=== PATIENT | male | born 1975 | race Caucasian/White ===

== ENCOUNTER 2025-01-30 05:15 | Inpatient (IN) | payer OTHER ==
[~2025-01-30] VITALS: Ht 182.9 cm; Wt 79.5 kg
[2025-01-30 06:55] LABS: CHLORIDE 104 mEq/L (98-107); POTASSIUM 3.9 mEq/L (3.5-5.1); SODIUM 141 mEq/L (136-145)
[2025-01-30 06:56] LABS: CALCIUM 8.9 mg/dL (8.7-10.4); CARBON DIOXIDE 24 mEq/L (21-32)
[2025-01-30 07:01] LABS: CREATININE 0.8 mg/dL (0.6-1.3); GLUCOSE 106 mg/dL (70-105); UREA NITROGEN BLOOD 14 mg/dL (9-23)
[2025-01-30 07:04] LABS: TROPONIN I HIGH SENSITIVITY 6 ng/L (3.0-53)
[2025-01-30 07:16] LABS: HEMATOCRIT. 41.9 % (42.0-52.0); HEMOGLOBIN. 13.9 g/dL (14.0-18.0); MEAN CORPUSCULAR HEMOGLOBIN 30.7 pg (28.0-32.0); MEAN CORPUSCULAR HGB CONC 33.1 g/dL (31.0-37.0); MEAN CORPUSCULAR VOLUME 92.6 fL (80.0-94.0); MEAN PLATELET VOLUME 7.8 fl (7.4-10.4); PLATELET 360 x1000/uL (130-400); RED BLOOD CELL COUNT 4.52 mill/uL (4.7-6.1); RED CELL DISTRIBUTION WIDTH 13.9 % (11.6-14.6); WHITE BLOOD COUNT 17.6 x1000/uL (4.5-11.0)
[2025-01-30 07:22] LABS: DIFFERENTIAL COMMENT 1
[2025-01-30 07:31] LABS: INR 0.9; PROTHROMBIN TIME 10.1 sec (9.6-11.0)
[2025-01-30 07:42] LABS: PLATELET ESTIMATE NORMAL
[2025-01-30] MEDS: NALOXONE HCL 0.4MG/ML 1ML VIAL IV ONE ×2 (09:38→10:44)
[2025-01-30] MEDS: SODIUM CHLORIDE 0.9% 1,000 ML IV ONE (09:39)
[2025-01-30] MEDS ORDERED: NALOXONE 4 MG in SODIUM CHLORIDE 0.9% 246 ML IV ONE (10:00)
[2025-01-30] MEDS ORDERED: ACETAMINOPHEN 325MG TABLET PO PRN ×2 (10:30)
[2025-01-30] MEDS ORDERED: DOCUSATE SODIUM 100MG CAPSULE PO PRN (10:30)
[2025-01-30] MEDS ORDERED: IPRATROPIUM/ALBUTEROL 0.5-3(2.5)MG/3ML NEB HHN PRN (10:30)
[2025-01-30] MEDS ORDERED: ONDANSETRON HCL 4MG/2ML INJ IV PRN (10:30)
[2025-01-30] MEDS ORDERED: GUAIFENESIN 200MG/10ML SUGAR FREE UDC PO PRN (10:30)
[2025-01-30] MEDS ORDERED: LORAZEPAM 2MG/ML INJ IV PRN (10:30)
[2025-01-30] MEDS ORDERED: CLONIDINE 0.1MG TABLET PO PRN (10:30)
[2025-01-30] MEDS ORDERED: MAGNESIUM/ALUMINUM HYDROXIDE/SIMETHICONE 30ML UDC PO PRN (10:30)
[2025-01-30] MEDS: NALOXONE 4 MG in SODIUM CHLORIDE 0.9% 246 ML IV NR (10:44)
[2025-01-30 11:37] LABS: IRON 72 ug/dL (65-175)
[2025-01-30 11:39] LABS: ALANINE AMINOTRANSFERASE 25 IU/L (10-49); ALBUMIN 4.4 g/dL (3.2-4.8); ASPARTATE AMINOTRANSFERASE 28 IU/L (<34)
[2025-01-30 11:40] LABS: BILIRUBIN DIRECT 0.2 mg/dL (<=3.0); BILIRUBIN TOTAL 0.6 mg/dL (0.1-1.0); PHOSPHORUS 4.5 mg/dL (2.5-4.9); PROTEIN TOTAL 7.3 g/dL (6.0-8.3); TOTAL IRON BINDING CAPACITY 321 ug/dl (250-425)
[2025-01-30 11:54] LABS: ETHANOL BLOOD < 10 mg/dL (<10)
[2025-01-30 11:57] LABS: VITAMIN B12 SERUM 249 pg/mL (211-911)
[2025-01-30] MEDS: THIAMINE HCL 100MG TABLET PO SCH (12:01)
[2025-01-30] MEDS: SODIUM CHLORIDE 0.9% 1,000 ML IV SCH (12:01)
[2025-01-30 12:03] LABS: CORTISOL 57.2 ucg/dL
[2025-01-30 12:20] LABS: BG BASE EXCESS -0.9 mmol/L (-2.0-3.0); BG CARBOXYHEMOGLOBIN 1.3 % (0.5-1.5); BG DEOXYHEMOGLOBIN 2.1 % (0.0-5.0); BG FRACTION INSPIRED OXYGEN 40; BG HCO3 ACT 26.4 mmol/L (21.0-28.0); BG METHEMOGLOBIN 0.3 % (0.5-1.5); BG OXYGEN SATURATION 97.9 % (94.0-98.0); BG OXYHEMOGLOBIN 96.3 % (94.0-98.0); BG PCO2 54.3 mmHg (35.0-48.0); BG PH 7.305 (7.350-7.450); BG PO2 110.7 mmHg (83.0-108.0); BG SAMPLE SITE RIGHT RADIAL; BG TOTAL HEMOGLOBIN 15.1 g/dL (13.5-17.5); BG VENT MODE NASAL CANNULA
[2025-01-30 14:48] LABS: CLARITY URINE CLEAR (CLEAR); COLOR URINE YELLOW (YELLOW); GLUCOSE URINE NEGATIVE (NEGATIVE); KETONES URINE 1+ (NEGATIVE); LEUKOCYTE ESTERASE URINE NEGATIVE (NEGATIVE); NITRITE URINE NEGATIVE (NEGATIVE); OCCULT BLOOD URINE NEGATIVE (NEGATIVE); PH URINE 5.5 (4.5-8.0); PROTEIN URINE TRACE (NEGATIVE); SPECIFIC GRAVITY URINE 1.021 (1.005-1.030); UROBILINOGEN URINE 0.2 E.U./dL (0.2-1.0)
[2025-01-30 15:01] LABS: BACTERIA URINE TRACE; RBC URINE 0-2 /hpf (0-2); SQUAMOUS EPITHELIAL CELL URINE RARE /lpf (RARE/1+); WBC URINE 0-2 /hpf (0-2)
[2025-01-30 15:14] LABS: CREATINE KINASE 239 IU/L (46-171)
[2025-01-30 15:24] LABS: *AMPHETAMINES SCREEN URINE NEGATIVE (NEGATIVE); *BARBITURATES SCREEN URINE NEGATIVE (NEGATIVE); *BENZODIAZEPINES SCREEN URINE NEGATIVE (NEGATIVE); *COCAINE SCREEN URINE PRESUMPTIVE POSITIVE (NEGATIVE); CANNABINOID URINE SCREEN PRESUMPTIVE POSITIVE (NEGATIVE); ECSTASY MDMA SCREEN URINE NEGATIVE (NEGATIVE); METHADONE URINE SCREEN NEGATIVE (NEGATIVE); OPIATES URINE SCREEN NEGATIVE (NEGATIVE); PHENCYCLIDINE URINE SCREEN NEGATIVE (NEGATIVE)
[2025-01-30 15:34] LABS: AMMONIA < 17 uMol/L (<32)
[2025-01-30] MEDS: FAMOTIDINE 20MG/2ML VIAL IV SCH (21:57)
[2025-01-30 23:28] VITALS: BP 141/85; PULSE 87; RESP 20; TEMP 36.5
[2025-01-31] VITALS: BP 135/78; PULSE 81; RESP 17; TEMP 36.6; O2SAT 98
[2025-01-31 04:00] VITALS: BP 142/83; PULSE 89; RESP 15; TEMP 36.6; O2SAT 97
[2025-01-31] MEDS: MULTIVITAMINS,THER W-MINERALS TABLET PO SCH (08:37)
[2025-01-31 14:15] LABS: BASOPHILS % 0.2 % (0.0-2.0); EOSINOPHILS % 0.8 % (0.0-5.0); HEMOGLOBIN. 13.6 g/dL (14.0-18.0); LYMPHOCYTES % 27.7 % (20.0-50.0); MEAN CORPUSCULAR HEMOGLOBIN 30.9 pg (28.0-32.0); MEAN CORPUSCULAR HGB CONC 32.4 g/dL (31.0-37.0); MEAN CORPUSCULAR VOLUME 95.4 fL (80.0-94.0); MEAN PLATELET VOLUME 8.5 fl (7.4-10.4); MONOCYTES % 4.8 % (2.0-8.0); NEUTROPHILS % 66.5 % (40.0-76.0); PLATELET 344 x1000/uL (130-400); WHITE BLOOD COUNT 8.3 x1000/uL (4.5-11.0)
[2025-01-31 14:23] LABS: CARBON DIOXIDE 30 mEq/L (21-32); CHLORIDE 99 mEq/L (98-107); POTASSIUM 3.4 mEq/L (3.5-5.1); SODIUM 139 mEq/L (136-145)
[2025-01-31 14:24] LABS: CALCIUM 9.8 mg/dL (8.7-10.4)
[2025-01-31 14:28] LABS: CREATININE 0.8 mg/dL (0.6-1.3); GLUCOSE 89 mg/dL (70-105)
[2025-01-31 14:29] LABS: TRIGLYCERIDE 111 mg/dL (0-150); UREA NITROGEN BLOOD 9 mg/dL (9-23)
[2025-01-31 14:30] LABS: CREATINE KINASE 218 IU/L (46-171); LDL CHOLESTEROL 45 mg/dL (5-100)
[2025-01-31 14:31] LABS: CHOLESTEROL 172 mg/dL (<200); HDL CHOLESTEROL 85 mg/dL (>55)
[2025-01-31 14:33] LABS: THYROID STIMULATING HORMONE 1.55 uIU/mL (0.55-4.78)
[2025-01-31] MEDS: MAGNESIUM 2 G PREMIX 50 ML IV NR (15:53)
[2025-01-31 16:00] VITALS: BP 128/77; PULSE 88; RESP 18; TEMP 36.5; O2SAT 99
[2025-01-31] MEDS: POTASSIUM PHOSPHATE 10 MMOL in DEXT 5% WATER 246.6667 ML IV NR (18:21)
[2025-01-31] MEDS: POTASSIUM CHLORIDE 20MEQ TABLET SR PO NR (18:22)
[2025-01-31 20:00] VITALS: BP 127/85; PULSE 80; RESP 18; TEMP 36.3; O2SAT 98
[2025-02-01] VITALS: BP 108/71; PULSE 83; RESP 18; TEMP 36.6; O2SAT 97
[2025-02-01 04:00] VITALS: BP 139/88; PULSE 83; RESP 18; TEMP 36.4; O2SAT 99
[2025-02-01 08:00] VITALS: BP 123/84; PULSE 95; RESP 18; TEMP 36.7; O2SAT 99
[2025-02-01 08:53] LABS: CALCIUM 9.5 mg/dL (8.7-10.4); CARBON DIOXIDE 30 mEq/L (21-32); CHLORIDE 103 mEq/L (98-107); POTASSIUM 4.2 mEq/L (3.5-5.1); SODIUM 140 mEq/L (136-145)
[2025-02-01 08:59] LABS: CREATININE 0.9 mg/dL (0.6-1.3); GLUCOSE 91 mg/dL (70-105); UREA NITROGEN BLOOD 9 mg/dL (9-23)
[2025-02-01] MEDS ORDERED: ENOXAPARIN 80MG/0.8ML SYR SUBCUT SCH (09:00)
[2025-02-01 09:01] LABS: PHOSPHORUS 2.7 mg/dL (2.5-4.9)
[2025-02-01 09:04] LABS: BASOPHILS % 0.6 % (0.0-2.0); EOSINOPHILS % 2.8 % (0.0-5.0); HEMATOCRIT. 39.5 % (42.0-52.0); HEMOGLOBIN. 13.2 g/dL (14.0-18.0); LYMPHOCYTES % 42.2 % (20.0-50.0); MEAN CORPUSCULAR HEMOGLOBIN 30.9 pg (28.0-32.0); MEAN CORPUSCULAR HGB CONC 33.3 g/dL (31.0-37.0); MEAN CORPUSCULAR VOLUME 92.6 fL (80.0-94.0); MEAN PLATELET VOLUME 8.3 fl (7.4-10.4); MONOCYTES % 11.3 % (2.0-8.0); NEUTROPHILS % 43.1 % (40.0-76.0); PLATELET 317 x1000/uL (130-400); RED BLOOD CELL COUNT 4.27 mill/uL (4.7-6.1); RED CELL DISTRIBUTION WIDTH 13.7 % (11.6-14.6); WHITE BLOOD COUNT 5.3 x1000/uL (4.5-11.0)
[2025-02-01] MEDS: ENOXAPARIN 40MG/0.4ML SYR SUBCUT SCH (09:11)
[2025-02-01 12:00] VITALS: BP 126/78; PULSE 94; RESP 18; TEMP 36.2; O2SAT 99
[2025-02-01 14:31] VITALS: BP 145/78; PULSE 85; TEMP 98.2; O2SAT 98
[2025-02-01 14:37] VITALS: BP 125/68; PULSE 86; TEMP 98.3; O2SAT 95
== END 2025-02-01 15:45 | disposition home or self-care (01) | DRG 917 ==
LOC: ER 05:15 → EDBD 05:15 → EDBEDREQ 09:34 → EDBEDREQTM 09:34 → EDBEDREQSVC 11:40 → 6WST 11:42 → EDBEDREQSVC 11:42 → EDBEDREQTM 11:42 → EDBEDREQSVC 20:56
PROVIDERS: ADMIT Hospitalist; ATTEND Hospitalist
DX: T40.411A Poisoning by fentanyl or fentanyl analogs, accidental (unintentional), initial encounter (principal); G92.8 Other toxic encephalopathy; J96.01 Acute respiratory failure with hypoxia; R65.10 Systemic inflammatory response syndrome (SIRS) of non-infectious origin without acute organ dysfunction; T40.711A Poisoning by cannabis, accidental (unintentional), initial encounter; T40.5X1A Poisoning by cocaine, accidental (unintentional), initial encounter; D72.829 Elevated white blood cell count, unspecified; G89.29 Other chronic pain; M54.9 Dorsalgia, unspecified; R00.0 Tachycardia, unspecified; F14.10 Cocaine abuse, uncomplicated; F12.10 Cannabis abuse, uncomplicated; F11.10 Opioid abuse, uncomplicated; E83.42 Hypomagnesemia; E83.39 Other disorders of phosphorus metabolism; G93.89 Other specified disorders of brain; F17.200 Nicotine dependence, unspecified, uncomplicated; F32.A Depression, unspecified; D64.9 Anemia, unspecified; R59.1 Generalized enlarged lymph nodes; E87.6 Hypokalemia; I48.0 Paroxysmal atrial fibrillation; Z77.120 Contact with and (suspected) exposure to mold (toxic); Y92.89 Other specified places as the place of occurrence of the external cause
CPT/HCPCS: 36415; 36600; 71045; 80048; 80061; 80076; 80305; 80307; 80320; 80329; 81003; 82140; 82375; 82533; 82550; 82607; 82805; 83036; 83540; 83550; 83605; 83735; 83880; 84100; 84145; 84425; 84439; 84443; 84480; 84484; 85025; 93005; 93970; 99291; A4606; C1893; J1650; J2310; J3475; J3490; J7030; J7050; J7060; G0480